=== PATIENT | male | born 1955 | race Caucasian/White ===

== ENCOUNTER 2021-07-17 22:56 | Inpatient (IN) ==
[2021-07-17 23:35] LABS: Basophils % 0.5 %; Eosinophils % 0.1 %; Hemoglobin 15.3 g/dL (12.9-16.9); Immature Granulocytes % 0.3 % (0-4); Lymphocytes # 0.7 K/mcL (0.6-4.6); Lymphocytes % 9.6 %; Mean Corpuscular HGB Conc 34.8 g/dL (31.6-35.5); Mean Platelet Volume 9.8 fL (9.4-12.4); Monocytes # 0.7 K/mcL (0.0-1.3); Monocytes % 8.8 %; Neutrophils # 6.1 K/mcL (1.6-8.9); Platelet Count 140 K/mcL (140-400); Red Blood Count 4.63 M/mcL (4.19-5.50); Red Cell Distribution Width 12.2 % (11.5-14.5); Segmented Neutrophils % 80.7 %; White Blood Count 7.5 K/mcL (4.3-11.1)
[2021-07-17 23:54] LABS: BUN/Creatinine Ratio 21 (6-26); Blood Urea Nitrogen 21 mg/dL (8-23); Calcium 9.2 mg/dL (8.6-10.3); Carbon Dioxide 21 mEq/L (23-29); Chloride 105 mEq/L (98-107); Glucose 101 mg/dL (70-105); Osmolality,Calculated 285 (280-300); Potassium 3.9 mEq/L (3.5-5.1); Sodium 136 mEq/L (136-145); eGFR For African Americans > 60 (> 60); eGFR For Non-African Americans > 60 (> 60)
[2021-07-17 23:56] LABS: Troponin I < 0.03 ng/mL (< 0.04)
[2021-07-18] MEDS ORDERED: Isovue-370 500 ML BOTTLE IVP ONE ×2 (00:52→00:55)
[2021-07-18] MEDS ORDERED: Aspirin 325 MG TABLET PO ONE (00:52)
[2021-07-18] MEDS: Nitroglycerin 0.4 MG TAB.SUBL SL PRN ×2 (02:08→02:16)
[2021-07-18 02:19] LABS: Influenza A PCR Negative (Negative); Influenza B PCR Negative (Negative); Resp. Syncytial Virus PCR Negative (Negative)
[2021-07-18 02:24] LABS: SARS-CoV-2 by PCR (In House) Negative (Negative)
[2021-07-18] MEDS ORDERED: 0.9 % Sodium Chloride 1,000 ML ONE ×2 (02:28→03:16)
[2021-07-18] MEDS: 0.9 % Sodium Chloride 1,000 ML IVC SCH ×4 (02:28→22:14)
[2021-07-18] MEDS ORDERED: *HR* Heparin 5,000 UNIT/ML VIAL IVP ONE (02:37)
[2021-07-18] MEDS ORDERED: *HR* Heparin 5,000 UNIT/ML VIAL IVP PRN (02:37)
[2021-07-18] MEDS: Heparin 25,000UNIT/250ML 1/2NS 25,000 UNIT/250 ML IV.SOLN IVC SCH ×2 (03:04→22:13)
[2021-07-18 03:13] LABS: Magnesium 1.8 mg/dL (1.6-2.6)
[2021-07-18] MEDS ORDERED: Acetaminophen 325 MG TABLET PO PRN (03:36)
[2021-07-18] MEDS ORDERED: Naloxone 0.4 MG/ML INJ IVP PRN ×2 (03:36→05:19)
[2021-07-18] MEDS ORDERED: Ondansetron ODT 4 MG TAB.RAPDIS SL PRN (03:36)
[2021-07-18] MEDS ORDERED: Melatonin 3 MG TABLET PO PRN (03:36)
[2021-07-18] MEDS ORDERED: Perflutren Lipid Microsphere 1.3 ML in 0.9 % Sodium Chloride 8.7 ML IVP PRN (03:39)
[2021-07-18] MEDS ORDERED: *HR* LORazepam 0.5 MG TABLET PO ONE (04:09)
[2021-07-18 05:45] LABS: Hemoglobin 15.3 g/dL (12.9-16.9)
[2021-07-18 05:46] LABS: Hematocrit 45.2 % (37.5-50.1); Immature Platelets 2.5 % (1.1-6.1); Mean Corpuscular HGB Conc 33.8 g/dL (31.6-35.5); Mean Corpuscular Hemoglobin 32.6 pg (28.0-33.3); Mean Corpuscular Volume 96.2 fL (83.0-100.0); Mean Platelet Volume 10.2 fL (9.4-12.4); Red Blood Count 4.7 M/mcL (4.19-5.50); Red Cell Distribution Width 12.2 % (11.5-14.5); White Blood Count 9.2 K/mcL (4.3-11.1)
[2021-07-18 05:56] LABS: Estimated Average Glucose 100 mg/dl; Hemoglobin A1C 5.1 %
[2021-07-18 06:47] LABS: BUN/Creatinine Ratio 18 (6-26); Blood Urea Nitrogen 16 mg/dL (8-23); Calcium 8.7 mg/dL (8.6-10.3); Carbon Dioxide 23 mEq/L (23-29); Chloride 108 mEq/L (98-107); Chol/HDL Ratio 3.6 (0-4.9); Cholesterol 171 mg/dL (< 200); Glucose 104 mg/dL (70-105); HDL Cholesterol 48 mg/dL (40-59); LDL Cholesterol,Calculated 113 mg/dL (< 100); Magnesium 1.7 mg/dL (1.6-2.6); Osmolality,Calculated 287 (280-300); Phosphorous 3.4 mg/dL (2.7-4.5); Potassium 3.8 mEq/L (3.5-5.1); Sodium 138 mEq/L (136-145); Thyroid Stimulating Hormone 1.416 mcIU/mL (0.340-5.600); Triglycerides 52 mg/dL (< 150); eGFR For African Americans > 60 (> 60); eGFR For Non-African Americans > 60 (> 60)
[2021-07-18] MEDS ORDERED: Simethicone 80 MG TAB.CHEW PO PRN (10:37)
[2021-07-18] MEDS: *HR* OxyCODONE Immed Rel 5 MG TABLET PO PRN ×2 (16:23→23:43)
[2021-07-18] MEDS ORDERED: Acetaminophen IV 1,000 MG/100 ML BAG IVPB ONE (16:34)
[2021-07-18] MEDS ORDERED: Pantoprazole 40 MG VIAL IVP ONE (16:35)
[2021-07-18] MEDS: *HR* HYDROcodone/Acet 5/325 mg TABLET PO PRN (20:00)
[2021-07-19] MEDS: *HR* HYDROcodone/Acet 5/325 mg TABLET PO PRN ×3 (04:58→21:02)
[2021-07-19 07:02] LABS: Basophils % 0.2 %; Eosinophils # 0.1 K/mcL (0.0-0.6); Eosinophils % 0.7 %; Hematocrit 37.9 % (37.5-50.1); Hemoglobin 12.9 g/dL (12.9-16.9); Immature Granulocytes % 0.8 % (0-4); Lymphocytes # 0.9 K/mcL (0.6-4.6); Lymphocytes % 6.9 %; Mean Corpuscular Hemoglobin 33.5 pg (28.0-33.3); Mean Corpuscular Volume 98.4 fL (83.0-100.0); Mean Platelet Volume 10.6 fL (9.4-12.4); Monocytes # 1.2 K/mcL (0.0-1.3); Monocytes % 9.8 %; Neutrophils # 10.1 K/mcL (1.6-8.9); Platelet Count 121 K/mcL (140-400); Red Blood Count 3.85 M/mcL (4.19-5.50); Red Cell Distribution Width 12.9 % (11.5-14.5); Segmented Neutrophils % 81.6 %; White Blood Count 12.4 K/mcL (4.3-11.1)
[2021-07-19] MEDS ORDERED: Baclofen 10 MG TABLET PO PRN (09:20)
[2021-07-19] MEDS: *HR* OxyCODONE Immed Rel 5 MG TABLET PO PRN ×2 (09:25→17:34)
[2021-07-19] MEDS ORDERED: DilTIAZem CD (24hr) 120 MG CAP.ER.24H PO ONE (12:00)
[2021-07-19 15:03] LABS: INR 1.4; Prothrombin Time 15.1 Seconds (9.4-12.1)
[2021-07-19] MEDS: Heparin 25,000UNIT/250ML 1/2NS 25,000 UNIT/250 ML IV.SOLN IVC SCH (17:36)
[2021-07-19] MEDS ORDERED: *HR* Warfarin 5 MG TABLET PO ONE (18:00)
[2021-07-19] MEDS ORDERED: Warfarin perPT PO PRN (18:00)
[2021-07-19] MEDS: Latanoprost 2.5 ML BOTTLE BOTH EYES SCH (21:03)
[2021-07-19] MEDS: *HR* Heparin 5,000 UNIT/ML VIAL IVP PRN (21:07)
[2021-07-20] MEDS: *HR* OxyCODONE Immed Rel 5 MG TABLET PO PRN ×3 (01:03→16:28)
[2021-07-20] MEDS: *HR* HYDROcodone/Acet 5/325 mg TABLET PO PRN ×3 (06:34→22:54)
[2021-07-20 07:07] LABS: Basophils % 0.3 %; Eosinophils # 0.1 K/mcL (0.0-0.6); Eosinophils % 0.7 %; Hematocrit 36.8 % (37.5-50.1); Hemoglobin 12.2 g/dL (12.9-16.9); Immature Granulocytes % 0.4 % (0-4); Lymphocytes % 9.3 %; Mean Corpuscular HGB Conc 33.2 g/dL (31.6-35.5); Mean Corpuscular Hemoglobin 32.3 pg (28.0-33.3); Mean Corpuscular Volume 97.4 fL (83.0-100.0); Mean Platelet Volume 10.5 fL (9.4-12.4); Monocytes # 0.9 K/mcL (0.0-1.3); Monocytes % 8.7 %; Neutrophils # 8.5 K/mcL (1.6-8.9); Platelet Count 130 K/mcL (140-400); Red Blood Count 3.78 M/mcL (4.19-5.50); Red Cell Distribution Width 12.6 % (11.5-14.5); Segmented Neutrophils % 80.6 %; White Blood Count 10.5 K/mcL (4.3-11.1)
[2021-07-20 07:15] LABS: Heparin anti-factor XA UFH 0.3 IU/mL (0.30-0.70)
[2021-07-20 07:16] LABS: INR 1.3; Prothrombin Time 14.1 Seconds (9.4-12.1)
[2021-07-20 07:46] LABS: BUN/Creatinine Ratio 16 (6-26); Blood Urea Nitrogen 16 mg/dL (8-23); Calcium 8.5 mg/dL (8.6-10.3); Carbon Dioxide 25 mEq/L (23-29); Chloride 102 mEq/L (98-107); Glucose 127 mg/dL (70-105); Osmolality,Calculated 277 (280-300); Potassium 4.3 mEq/L (3.5-5.1); Sodium 132 mEq/L (136-145); eGFR For African Americans > 60 (> 60); eGFR For Non-African Americans > 60 (> 60)
[2021-07-20] MEDS ORDERED: DilTIAZem CD (24hr) 180 MG CAP.ER.24H PO SCH (09:00)
[2021-07-20] MEDS ORDERED: BIOTIN 10 MG PO SCH (09:00)
[2021-07-20] MEDS ORDERED: [UNRECOGNIZED DRUG - MIXTURE] PO SCH (09:00)
[2021-07-20] MEDS: polyethylene glycoL 3350 17 GM POWD.PACK PO SCH (09:42)
[2021-07-20] MEDS: Vitamin E 200 UNIT (90MG) CAPSULE PO SCH (09:44)
[2021-07-20] MEDS: Multivit/Ca/Min/Fe/FA 1 TAB TABLET PO SCH (09:44)
[2021-07-20] MEDS: Ascorbic Acid 500 MG TABLET PO SCH (09:44)
[2021-07-20] MEDS: Cholecalciferol (D-3) 1,000 UNIT (25MCG) TABLET PO SCH (09:44)
[2021-07-20] MEDS: Heparin 25,000UNIT/250ML 1/2NS 25,000 UNIT/250 ML IV.SOLN IVC SCH ×2 (09:46→14:37)
[2021-07-20] MEDS ORDERED: *HR* Warfarin 5 MG TABLET PO ONE (18:00)
[2021-07-20] MEDS: Latanoprost 2.5 ML BOTTLE BOTH EYES SCH (20:08)
[2021-07-21] MEDS: *HR* OxyCODONE Immed Rel 5 MG TABLET PO PRN ×3 (03:45→16:56)
[2021-07-21] MEDS: Heparin 25,000UNIT/250ML 1/2NS 25,000 UNIT/250 ML IV.SOLN IVC SCH (06:51)
[2021-07-21] MEDS: *HR* HYDROcodone/Acet 5/325 mg TABLET PO PRN (06:51)
[2021-07-21] MEDS ORDERED: DilTIAZem CD (24hr) 240 MG CAP.ER.24H PO SCH (09:00)
[2021-07-21] MEDS: Ascorbic Acid 500 MG TABLET PO SCH (10:57)
[2021-07-21] MEDS: Cholecalciferol (D-3) 1,000 UNIT (25MCG) TABLET PO SCH (10:57)
[2021-07-21] MEDS: polyethylene glycoL 3350 17 GM POWD.PACK PO SCH (10:57)
[2021-07-21] MEDS: Multivit/Ca/Min/Fe/FA 1 TAB TABLET PO SCH (10:57)
[2021-07-21] MEDS: Vitamin E 200 UNIT (90MG) CAPSULE PO SCH (10:57)
[2021-07-21 10:59] LABS: Basophils % 0.5 %; Eosinophils # 0.2 K/mcL (0.0-0.6); Eosinophils % 2.5 %; Hematocrit 36.9 % (37.5-50.1); Hemoglobin 12.5 g/dL (12.9-16.9); Lymphocytes # 1.3 K/mcL (0.6-4.6); Lymphocytes % 16.5 %; Mean Corpuscular HGB Conc 33.9 g/dL (31.6-35.5); Mean Corpuscular Hemoglobin 32.7 pg (28.0-33.3); Mean Corpuscular Volume 96.6 fL (83.0-100.0); Monocytes # 0.8 K/mcL (0.0-1.3); Monocytes % 9.8 %; Neutrophils # 5.5 K/mcL (1.6-8.9); Platelet Count 158 K/mcL (140-400); Red Blood Count 3.82 M/mcL (4.19-5.50); Red Cell Distribution Width 12.3 % (11.5-14.5); Segmented Neutrophils % 69.7 %; White Blood Count 7.9 K/mcL (4.3-11.1)
[2021-07-21 11:07] LABS: Heparin anti-factor XA UFH 0.1 IU/mL (0.30-0.70)
[2021-07-21 11:08] LABS: INR 1.4; Prothrombin Time 15.1 Seconds (9.4-12.1)
[2021-07-21 11:20] LABS: BUN/Creatinine Ratio 15 (6-26); Blood Urea Nitrogen 16 mg/dL (8-23); Calcium 8.6 mg/dL (8.6-10.3); Carbon Dioxide 27 mEq/L (23-29); Chloride 106 mEq/L (98-107); Glucose 106 mg/dL (70-105); Osmolality,Calculated 288 (280-300); Potassium 3.7 mEq/L (3.5-5.1); Sodium 138 mEq/L (136-145); eGFR For African Americans > 60 (> 60); eGFR For Non-African Americans > 60 (> 60)
[2021-07-21] MEDS ORDERED: Benzocaine 20% 12 APPL GEL..GRAM. TP PRN (15:04)
[2021-07-21] MEDS ORDERED: Bisacodyl 10 MG RECTAL SUPPOSITORY RC ONE (15:32)
[2021-07-21] MEDS: Sennosides/Docusate Sodium TABLET PO SCH (16:02)
[2021-07-21] MEDS ORDERED: *HR* Warfarin 5 MG TABLET PO ONE (18:00)
[2021-07-21] MEDS: Latanoprost 2.5 ML BOTTLE BOTH EYES SCH (20:50)
[2021-07-22] MEDS: Heparin 25,000UNIT/250ML 1/2NS 25,000 UNIT/250 ML IV.SOLN IVC SCH ×2 (00:15→13:26)
[2021-07-22] MEDS: *HR* OxyCODONE Immed Rel 5 MG TABLET PO PRN (00:36)
[2021-07-22 02:07] LABS: Basophils # 0.1 K/mcL (0.0-0.2); Basophils % 0.6 %; Eosinophils # 0.3 K/mcL (0.0-0.6); Eosinophils % 2.6 %; Hematocrit 36.8 % (37.5-50.1); Hemoglobin 12.6 g/dL (12.9-16.9); Lymphocytes # 1.4 K/mcL (0.6-4.6); Lymphocytes % 14.8 %; Mean Corpuscular HGB Conc 34.2 g/dL (31.6-35.5); Mean Corpuscular Volume 96.3 fL (83.0-100.0); Mean Platelet Volume 10.2 fL (9.4-12.4); Monocytes # 1.1 K/mcL (0.0-1.3); Monocytes % 10.9 %; Neutrophils # 6.7 K/mcL (1.6-8.9); Platelet Count 195 K/mcL (140-400); Red Blood Count 3.82 M/mcL (4.19-5.50); Red Cell Distribution Width 12.3 % (11.5-14.5); Segmented Neutrophils % 70.1 %; White Blood Count 9.6 K/mcL (4.3-11.1)
[2021-07-22 02:22] LABS: INR 1.5; Prothrombin Time 17.2 Seconds (9.4-12.1)
[2021-07-22] MEDS: Sennosides/Docusate Sodium TABLET PO SCH ×2 (08:10→20:04)
[2021-07-22] MEDS: Vitamin E 200 UNIT (90MG) CAPSULE PO SCH (08:10)
[2021-07-22] MEDS: Multivit/Ca/Min/Fe/FA 1 TAB TABLET PO SCH (08:10)
[2021-07-22] MEDS: Cholecalciferol (D-3) 1,000 UNIT (25MCG) TABLET PO SCH (08:10)
[2021-07-22] MEDS: Ascorbic Acid 500 MG TABLET PO SCH (08:10)
[2021-07-22] MEDS: DilTIAZem CD (24hr) 180 MG CAP.ER.24H PO SCH (08:11)
[2021-07-22] MEDS: polyethylene glycoL 3350 17 GM POWD.PACK PO SCH (08:11)
[2021-07-22] MEDS: *HR* Metoprolol 5 MG/5 ML VIAL IVP ONE ×2 (08:45→08:51)
[2021-07-22] MEDS ORDERED: *HR* Warfarin 7.5 MG TABLET PO ONE (18:00)
[2021-07-22] MEDS: Latanoprost 2.5 ML BOTTLE BOTH EYES SCH (20:04)
[2021-07-23 02:41] LABS: Basophils # 0.1 K/mcL (0.0-0.2); Basophils % 0.6 %; Eosinophils # 0.2 K/mcL (0.0-0.6); Eosinophils % 1.6 %; Hematocrit 39.6 % (37.5-50.1); Hemoglobin 13.2 g/dL (12.9-16.9); Immature Granulocytes % 1.6 % (0-4); Lymphocytes # 1.4 K/mcL (0.6-4.6); Lymphocytes % 12.4 %; Mean Corpuscular HGB Conc 33.3 g/dL (31.6-35.5); Mean Corpuscular Hemoglobin 32.3 pg (28.0-33.3); Mean Corpuscular Volume 96.8 fL (83.0-100.0); Mean Platelet Volume 9.4 fL (9.4-12.4); Monocytes % 8.9 %; Neutrophils # 8.4 K/mcL (1.6-8.9); Platelet Count 245 K/mcL (140-400); Red Blood Count 4.09 M/mcL (4.19-5.50); Red Cell Distribution Width 12.2 % (11.5-14.5); Segmented Neutrophils % 74.9 %; White Blood Count 11.3 K/mcL (4.3-11.1)
[2021-07-23 02:48] LABS: Heparin anti-factor XA UFH 0.25 IU/mL (0.30-0.70); INR 1.9; Prothrombin Time 20.8 Seconds (9.4-12.1)
[2021-07-23 02:58] LABS: BUN/Creatinine Ratio 17 (6-26); Blood Urea Nitrogen 17 mg/dL (8-23); Calcium 9.1 mg/dL (8.6-10.3); Carbon Dioxide 26 mEq/L (23-29); Chloride 103 mEq/L (98-107); Glucose 127 mg/dL (70-105); Osmolality,Calculated 285 (280-300); Potassium 4.2 mEq/L (3.5-5.1); Sodium 136 mEq/L (136-145); eGFR For African Americans > 60 (> 60); eGFR For Non-African Americans > 60 (> 60)
[2021-07-23] MEDS: *HR* Heparin 5,000 UNIT/ML VIAL IVP PRN (03:02)
[2021-07-23] MEDS: Heparin 25,000UNIT/250ML 1/2NS 25,000 UNIT/250 ML IV.SOLN IVC SCH ×2 (05:09→17:11)
[2021-07-23] MEDS: DilTIAZem CD (24hr) 180 MG CAP.ER.24H PO SCH (08:09)
[2021-07-23] MEDS: Multivit/Ca/Min/Fe/FA 1 TAB TABLET PO SCH (08:09)
[2021-07-23] MEDS: Ascorbic Acid 500 MG TABLET PO SCH (08:09)
[2021-07-23] MEDS: Sennosides/Docusate Sodium TABLET PO SCH ×2 (08:09→20:59)
[2021-07-23] MEDS: Vitamin E 200 UNIT (90MG) CAPSULE PO SCH (08:09)
[2021-07-23] MEDS: Cholecalciferol (D-3) 1,000 UNIT (25MCG) TABLET PO SCH (08:09)
[2021-07-23] MEDS: polyethylene glycoL 3350 17 GM POWD.PACK PO SCH (08:10)
[2021-07-23] MEDS ORDERED: Metoprolol XL (24 HR) Succ 25 MG TAB.ER.24H PO SCH (10:00)
[2021-07-23] MEDS ORDERED: *HR* Warfarin 5 MG TABLET PO ONE (18:00)
[2021-07-23] MEDS: Metoprolol XL (24 HR) Succ 25 MG TAB.ER.24H PO SCH (20:59)
[2021-07-23] MEDS: Latanoprost 2.5 ML BOTTLE BOTH EYES SCH (21:30)
[2021-07-24 07:22] LABS: INR 2.4; Prothrombin Time 26.2 Seconds (9.4-12.1)
[2021-07-24] MEDS: Metoprolol XL (24 HR) Succ 25 MG TAB.ER.24H PO SCH ×2 (07:37→20:44)
[2021-07-24] MEDS: Cholecalciferol (D-3) 1,000 UNIT (25MCG) TABLET PO SCH (07:37)
[2021-07-24] MEDS: DilTIAZem CD (24hr) 180 MG CAP.ER.24H PO SCH (07:37)
[2021-07-24] MEDS: Vitamin E 200 UNIT (90MG) CAPSULE PO SCH (07:37)
[2021-07-24] MEDS: Heparin 25,000UNIT/250ML 1/2NS 25,000 UNIT/250 ML IV.SOLN IVC SCH (07:38)
[2021-07-24] MEDS: Sennosides/Docusate Sodium TABLET PO SCH ×2 (07:38→20:44)
[2021-07-24] MEDS: Ascorbic Acid 500 MG TABLET PO SCH (07:38)
[2021-07-24] MEDS: Multivit/Ca/Min/Fe/FA 1 TAB TABLET PO SCH (07:38)
[2021-07-24] MEDS: polyethylene glycoL 3350 17 GM POWD.PACK PO SCH (07:38)
[2021-07-24] MEDS ORDERED: Regadenoson 0.4 MG/5 ML SYRINGE IVP ONE (14:01)
[2021-07-24] MEDS ORDERED: *HR* Warfarin 2.5 MG TABLET PO ONE (18:00)
[2021-07-24] MEDS: Latanoprost 2.5 ML BOTTLE BOTH EYES SCH (20:45)
[2021-07-25 05:36] LABS: Basophils # 0.1 K/mcL (0.0-0.2); Basophils % 1.3 %; Eosinophils # 0.3 K/mcL (0.0-0.6); Eosinophils % 3.4 %; Hematocrit 46.5 % (37.5-50.1); Immature Granulocytes % 3.9 % (0-4); Lymphocytes # 1.8 K/mcL (0.6-4.6); Lymphocytes % 18.5 %; Mean Corpuscular HGB Conc 32.7 g/dL (31.6-35.5); Mean Corpuscular Hemoglobin 32.2 pg (28.0-33.3); Mean Corpuscular Volume 98.5 fL (83.0-100.0); Mean Platelet Volume 9.1 fL (9.4-12.4); Monocytes # 0.9 K/mcL (0.0-1.3); Monocytes % 9.1 %; Neutrophils # 6.2 K/mcL (1.6-8.9); Platelet Count 348 K/mcL (140-400); Red Blood Count 4.72 M/mcL (4.19-5.50); Red Cell Distribution Width 12.3 % (11.5-14.5); Segmented Neutrophils % 63.8 %; White Blood Count 9.7 K/mcL (4.3-11.1)
[2021-07-25 05:43] LABS: Hemoglobin 15.2 g/dL (12.9-16.9)
[2021-07-25 05:49] LABS: INR 2.1; Prothrombin Time 23.1 Seconds (9.4-12.1)
[2021-07-25 05:58] LABS: BUN/Creatinine Ratio 17 (6-26); Blood Urea Nitrogen 20 mg/dL (8-23); Calcium 9.2 mg/dL (8.6-10.3); Carbon Dioxide 27 mEq/L (23-29); Chloride 103 mEq/L (98-107); Glucose 110 mg/dL (70-105); Magnesium 2.2 mg/dL (1.6-2.6); Osmolality,Calculated 293 (280-300); Potassium 4.2 mEq/L (3.5-5.1); Sodium 140 mEq/L (136-145); eGFR For African Americans > 60 (> 60); eGFR For Non-African Americans 60 (> 60)
[2021-07-25] MEDS ORDERED: Regadenoson 0.4 MG/5 ML SYRINGE IVP ONE (06:54)
[2021-07-25] MEDS: DilTIAZem CD (24hr) 180 MG CAP.ER.24H PO SCH (08:00)
[2021-07-25] MEDS: Metoprolol XL (24 HR) Succ 25 MG TAB.ER.24H PO SCH (08:01)
[2021-07-25] MEDS: Sennosides/Docusate Sodium TABLET PO SCH (08:09)
[2021-07-25] MEDS: polyethylene glycoL 3350 17 GM POWD.PACK PO SCH (08:09)
[2021-07-25] MEDS: Multivit/Ca/Min/Fe/FA 1 TAB TABLET PO SCH (12:36)
[2021-07-25] MEDS: Ascorbic Acid 500 MG TABLET PO SCH (12:36)
[2021-07-25] MEDS: Cholecalciferol (D-3) 1,000 UNIT (25MCG) TABLET PO SCH (12:36)
[2021-07-25] MEDS: Vitamin E 200 UNIT (90MG) CAPSULE PO SCH (12:36)
[2021-07-25 15:41] VITALS: BP 121/71; PULSE 81; TEMP 97.9; O2SAT 93
[2021-07-25] MEDS ORDERED: *HR* Warfarin 5 MG TABLET PO ONE (18:00)
== END 2021-07-25 17:06 | disposition home or self-care (01) | DRG 176 ==
LOC: 2ANU 22:56 → EMEROOARM 22:56 → SUATTDRO 07-18 03:41 → 2ANU 07-18 05:09
PROVIDERS: ADMIT Internal Medicine; ATTEND Family Medicine